=== PATIENT | male | born 1975 | race Caucasian/White ===

== ENCOUNTER 2017-11-08 04:22 | Emergency (ER) | payer OTHER ==
--- NOTE | 2017-11-08 07:10 | ER Document Report ---
ED General - General Chief Complaint: Cold Symptoms Stated Complaint: COLD SYMPTOMS Time Seen by Provider: 11/08/17 06:58 Notes: 42-year-old male to the emergency department chief complaint of sinus pressure. Has been having a sore throat for the last week. Has been trying over-the- counter medications but nothing seems to be working. Began having worsening pain on the left side of his face and forehead with thick drainage out of the left nostril. No fever at this time. No headache at this time. No other major symptoms. TRAVEL OUTSIDE OF THE [place] IN LAST 30 DAYS: No - HPI Onset: Last week Onset/Duration: Gradual, Worse - Related Data Allergies/Adverse Reactions: No Known Allergies Allergy (Unverified 11/08/17 04:28) Past Medical History - General Information source: Patient - Social History Smoking Status: Current Every Day Smoker Chew tobacco use (# tins/day): No Frequency of alcohol use: None Drug Abuse: Marijuana Lives with: Family Family History: Reviewed & Not Pertinent Patient has suicidal ideation: No Patient has homicidal ideation: No Renal/ Medical History: Denies: Hx Peritoneal Dialysis Past Surgical History: Reports: Hx Orthopedic Surgery - L knee, R hamstring Review of Systems - Review of Systems Constitutional: denies: Fever, Malaise EENT: Nose pain, Nose congestion, Nose discharge, Sinus pressure, Sinus discharge, Throat pain. denies: Ear pain, Ear discharge Cardiovascular: denies: Chest pain, Palpitations, Heart racing Respiratory: denies: Cough, Short of breath, Wheezing Neurological/Psychological: denies: Confusion, Weakness, Speech impairment, Numbness Physical Exam - Vital signs Vitals: Temp Pulse Resp BP Pulse Ox 97.5 F 60 18 122/82 98 11/08/17 04:31 11/08/17 04:31 11/08/17 04:31 11/08/17 04:31 11/08/17 04:31 Interpretation: Normal - General General appearance: Appears well - HEENT Head: Normocephalic, Atraumatic Eyes: Normal Pupils: PERRL External canal: Cerumen impaction Sinus: Frontal, Maxillary, Other - There is mild tenderness of the left frontal and left maxillary sinuses. Nasal: Clear rhinorrhea Mouth/Lips: Normal Mucous membranes: Normal - Respiratory Respiratory status: No respiratory distress Chest status: Nontender Breath sounds: Normal Chest palpation: Normal - Cardiovascular Rhythm: Regular Heart sounds: Normal auscultation Murmur: No - Neurological Neuro grossly intact: Yes Cognition: Normal Orientation: AAOx4 Course - Vital Signs Vital signs: Temp Pulse Resp BP Pulse Ox 97.5 F 60 18 122/82 98 11/08/17 04:31 11/08/17 04:31 11/08/17 04:31 11/08/17 04:31 11/08/17 04:31 Discharge - Discharge Clinical Impression: Left maxillary sinusitis Condition: Good Disposition: HOME, SELF-CARE Instructions: Sinusitis ([facility]) Additional Instructions: Continue to do sinus irrigation as described. You may try Claritin or Rissa daily. Benadryl at night. Sudafed or Afrin as described. If none of these treatments are working then please start the antibiotic. If symptoms are getting worse while on antibiotics please return for repeat evaluation. If you develop worsening symptoms including confusion, fever, headaches or anything else of concern please return for repeat evaluation. Prescriptions: Amox Tr/Potassium Clavulanate [Augmentin 875-125 Tablet] 1 tab PO BID 10 Days # 20 tablet
[2017-11-08 07:31] VITALS: BP 123/84
== END 2017-11-08 07:22 | disposition home or self-care (01) ==
LOC: ER 04:22
DX: J32.0 Chronic maxillary sinusitis (principal); J02.9 Acute pharyngitis, unspecified; H61.20 Impacted cerumen, unspecified ear; F17.200 Nicotine dependence, unspecified, uncomplicated
CPT/HCPCS: 99283